=== PATIENT | female | born 1995 | race Caucasian/White ===

== ENCOUNTER 2017-04-05 21:53 | Emergency (ER) | payer OTHER ==
[2017-04-05 23:36] LABS: APPEARANCE,URINE CLEAR; BILIRUBIN,URINE NEGATIVE (NEGATIVE); GLUCOSE, URINE NEGATIVE (NEGATIVE); KETONES,URINE NEGATIVE (NEGATIVE); LEUKOCYTE ESTERASE,URINE TRACE (NEGATIVE); NITRITE,URINE NEGATIVE (NEGATIVE); PROTEIN,URINE NEGATIVE (NEGATIVE); URINE SPECIFIC GRAVITY 1.017; UROBILINOGEN,URINE NEGATIVE mg/dL (<2.0)
[2017-04-05] MEDS ORDERED: FLUCONAZOLE 100 MG TABLET PO ONE (23:44)
--- NOTE | 2017-04-05 23:48 | ER Document Report ---
ED General - General Chief Complaint: Vaginal Itching Stated Complaint: VAGINAL SWELLING Time Seen by Provider: 04/05/17 22:51 Notes: Patient is a 21-year-old female without past medical history who presents with 1 week of vaginal itching and burning. Describes it as a constant, burning, throbbing pain. [place]erman worsens the pain. Nothing improves the pain. Denies a history of similar symptoms in the past except when she was 15 at which time she states she had a yeast infection that was treated with Azo. She has not seen her primary care doctor regarding today's concerns. She denies any abdominal pain, fever or constitutional symptoms. TRAVEL OUTSIDE OF THE [place] IN LAST 30 DAYS: No Past Medical History - General Information source: Patient - Social History Smoking Status: Never Smoker Frequency of alcohol use: None Drug Abuse: None Lives with: Spouse/Significant other Family History: Reviewed & Not Pertinent Patient has suicidal ideation: No Patient has homicidal ideation: No Neurological Medical History: Reports: Hx Seizures Renal/ Medical History: Denies: Hx Peritoneal Dialysis Surgical Hx: Negative Review of Systems - Review of Systems Notes: Constitutional: Negative for fever. HENT: Negative for sore throat. Eyes: Negative for visual changes. Cardiovascular: Negative for chest pain. Respiratory: Negative for shortness of breath. Gastrointestinal: Negative for abdominal pain, vomiting or diarrhea. Genitourinary: Positive for vaginal pain Musculoskeletal: Negative for back pain. Skin: Negative for rash. Neurological: Negative for headaches, weakness or numbness. 10 point ROS negative except as marked above and in HPI. Physical Exam - Vital signs Vitals: Temp Pulse Resp BP Pulse Ox 98.8 F 53 L 16 120/64 98 04/05/17 22:05 04/05/17 22:05 04/05/17 22:05 04/05/17 22:05 04/05/17 22:05 Interpretation: Bradycardic Notes: PHYSICAL EXAMINATION: GENERAL: Well-appearing, well-nourished and in no acute distress. HEAD: Atraumatic, normocephalic. EYES: sclera anicteric, conjunctiva are normal. ENT: Moist mucous membranes. NECK: Normal range of motion LUNGS: Normal work of breathing HEART: 2+ radial pulses bilaterally EXTREMITIES: no pitting or edema. No cyanosis. NEUROLOGICAL: No focal neurological deficits. Moves all extremities spontaneously and on command. PSYCH: Normal mood, normal affect. SKIN: Warm, Dry, normal turgor, no rashes or lesions noted. Course - Re-evaluation Re-evalutation: 04/05/17 23:44 Patient presents complaining of vaginal itching and burning with associated swelling for the past 1 week. Patient adamantly declines any pelvic or external vaginal exam despite my explanation that without this examination, I have no way to truly tell what is causing her symptoms and that given she has never actually had a yeast infection in the past there is no way she either can be certain that she has a yeast infection. I have declined to the patient that regardless of the fact that she is she could also have bacterial vaginosis as a cause, or if her could be unfaithful and she could have a sexually transmitted infection. I have explained that if we treat with fluconazole here it may not correct her symptoms and she could proceed to get much sicker including pelvic inflammatory disease, loss of fertility, or much more serious infection. She is breast understanding of this and continues to decline a pelvic examination. Will treat with a single dose of fluconazole and recommend close outpatient follow-up. At this time will discharge with return precautions and follow-up recommendations. Verbal discharge instructions given a the bedside and opportunity for questions given. Medication warnings reviewed. Patient is in agreement with this plan and has verbalized understanding of return precautions and the need for primary care follow-up in the next 24-72 hours. - Vital Signs Vital signs: Temp Pulse Resp BP Pulse Ox 98.8 F 87 18 101/62 98 04/05/17 22:05 04/05/17 23:55 04/05/17 23:55 04/05/17 23:55 04/05/17 23:55 - Laboratory Laboratory results interpreted by me: 04/05/17 23:15 Urine Blood SMALL H Ur Leukocyte Esterase TRACE H Discharge - Discharge Clinical Impression: Vaginal pain Condition: Good Disposition: HOME, SELF-CARE Additional Instructions: You have declined a pelvic exam so unfortunately I am not able to tell you exactly why your having the symptoms for which you presented to the emergency department. Please understand that she could have alternative infections that will not be treated by fluconazole and need to follow-up with your primary care doctor or another physician if your symptoms are not improving, worsen or you develop flulike symptoms including fever, abdominal pain, vomiting, or generalized malaise.
[2017-04-05 23:56] VITALS: BP 101/62
== END 2017-04-05 23:56 | disposition home or self-care (01) ==
LOC: ER 21:53
DX: L29.2 Pruritus vulvae (principal); R10.2 Pelvic and perineal pain
CPT/HCPCS: 81001; 81025; 99283

== ENCOUNTER 2018-05-04 15:50 | Inpatient (IN) | payer OTHER ==
[2018-05-04 16:26] LABS: APPEARANCE,URINE CLEAR; BILIRUBIN,URINE NEGATIVE (NEGATIVE); COLOR,URINE YELLOW; GLUCOSE, URINE NEGATIVE (NEGATIVE); KETONES,URINE NEGATIVE (NEGATIVE); LEUKOCYTE ESTERASE,URINE MODERATE (NEGATIVE); NITRITE,URINE NEGATIVE (NEGATIVE); PROTEIN,URINE NEGATIVE (NEGATIVE); URINE SPECIFIC GRAVITY 1.006; UROBILINOGEN,URINE NEGATIVE mg/dL (<2.0)
[2018-05-04 16:33] LABS: URINE AMPHETAMINES SCREEN NEGATIVE; URINE BARBITURATES SCREEN NEGATIVE; URINE BENZODIAZEPINES SCREEN NEGATIVE; URINE COCAINE SCREEN NEGATIVE; URINE MARIJUANA (THC) SCREEN NEGATIVE; URINE METHADONE SCREEN NEGATIVE; URINE PHENCYCLIDINE SCREEN NEGATIVE
--- NOTE | 2018-05-04 18:22 | Non Stress Test Report ---
Non Stress Test Datetime Report Generated by CPN: 05/04/2018 18:21 DEMOGRAPHIC EGA NST: 40.0 INDICATION Indication for Study: Ordered by Provider MONITORING Monitor Explained: Monitor Explained; Test Explained; Patient Verbalized Understanding Time on Monitor: 05/04/2018 16:07 Time off Monitor: 05/04/2018 16:49 NST Duration: 42 NST INTERVENTIONS NST Interventions: None Physician Notified NST: Dr. Dickson BABY A: [id number] BABY A Movement : Present Contraction Frequency : 2-3 FHR Baseline : 140 Accelerations : 15X15 Decelerations : None Variability : Moderate 6-25bpm NST Review: Meets Criteria for Reactive NST NST Review and Verified By : Dayami Alexander RN NST Results: Reactive NST REPORT Report Trigger: Send Report
[2018-05-04] MEDS ORDERED: RINGERS SOLUTION,LACTATED 1,000 ML IV ONE (18:46)
[2018-05-04] MEDS ORDERED: RINGERS SOLUTION,LACTATED 1,000 ML IV PRN (18:46)
[2018-05-04] MEDS ORDERED: OXYTOCIN/NORMAL SALINE 20 UNIT/1,000 ML RTUINJ ONE (19:23)
[2018-05-04] MEDS ORDERED: LIDOCAINE 1% INJ-PF (10 MG/ML) 30 ML SDV ONE (19:23)
[2018-05-04] MEDS ORDERED: MISOPROSTOL 0.2 MG TABLET ONE (19:23)
[2018-05-04] MEDS ORDERED: EPHEDRINE SULFATE INJ 50 MG/1 ML AMPULE ONE (19:23)
[2018-05-04] MEDS ORDERED: BUPIVACAINE HCL 0.25 % INJ/PF (2.5 MG/1 ML) 30 ML VIAL ONE (19:24)
[2018-05-04] MEDS ORDERED: FENTANYL/BUPIVACAINE/NS/PF 300 MCG/150 ML RTUINJ EPI ONE (19:24)
[2018-05-04 19:30] LABS: ABSOLUTE BASOPHILS # (AUTO) 0.1 10^3/uL (0.0-0.2); ABSOLUTE EOSINOPHILS # (AUTO) 0.1 10^3/uL (0.0-0.6); ABSOLUTE LYMPHOCYTES (AUTO) 1.2 10^3/uL (0.5-4.7); ABSOLUTE MONOCYTES (AUTO) 0.8 10^3/uL (0.1-1.4); ABSOLUTE NEUT (AUTO) 9.4 10^3/uL (1.7-8.2); BASOPHILS % (AUTO) 0.5 % (0-2); EOSINOPHILS % (AUTO) 0.5 % (0-6); HEMATOCRIT 38.7 % (36.0-47.0); HEMOGLOBIN 13.1 g/dL (12.0-15.5); LYMPHOCYTES % (AUTO) 10.3 % (13-45); MEAN CORPUSCULAR HEMOGLOBIN 29.6 pg (27.0-33.4); MEAN CORPUSCULAR HGB CONC 33.9 g/dL (32.0-36.0); MEAN CORPUSCULAR VOLUME 87 fl (80-97); MONOCYTES % (AUTO) 7.2 % (3-13); PLATELET COUNT 257 10^3/uL (150-450); RED BLOOD COUNT 4.43 10^6/uL (3.72-5.28); RED CELL DISTRIBUTION WIDTH 13.2 % (11.5-14.0); SEGMENTED NEUTROPHILS % (AUTO) 81.5 % (42-78); TOTAL CELLS COUNTED % (AUTO) 100 %; WHITE BLOOD COUNT 11.6 10^3/uL (4.0-10.5)
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
--- NOTE | 2018-05-04 21:37 | Warning Signs in Babies ---
VOD Warning Signs Datetime Report Generated by [facility]: 05/04/2018 21:37 VOD#608 -Warning Signs in Babies: Needs to be viewed. (05/04/2018 16:07:Shelley Fields RN)
[2018-05-04] MEDS ORDERED: GLYCERIN/WITCH HAZEL LEAF 1 EACH MED..PAD TP PRN (22:03)
[2018-05-04] MEDS ORDERED: PROMETHAZINE HCL 25 MG SUPP.RECT PR PRN (22:03)
[2018-05-04] MEDS ORDERED: MEASLES,MUMPS&RUBELLA VACC/PF 0.5 ML VIAL SUBCUT PRN (22:03)
[2018-05-04] MEDS ORDERED: PSEUDOEPHEDRINE HCL 30 MG TABLET PO PRN (22:03)
[2018-05-04] MEDS ORDERED: MISOPROSTOL 0.2 MG TABLET PR PRN (22:03)
[2018-05-04] MEDS ORDERED: ACETAMINOPHEN WITH CODEINE #3 TABLET PO PRN ×2 (22:03)
[2018-05-04] MEDS ORDERED: BENZOCAINE/MENTHOL AEROSOL SPRAY 56 ML TOP PRN (22:03)
[2018-05-04] MEDS ORDERED: DIPH/PERTUSS(ACELL)/TETANUS VAC/PF 0.5 ML SYR (>=10YO) IM PRN (22:03)
[2018-05-04] MEDS ORDERED: DIBUCAINE 1% OINTMENT 28 GM TP PRN (22:03)
[2018-05-04] MEDS ORDERED: NA PHOS,M-B/NA PHOS,DI-BA (ADULT) 133 ML ENEMA PR PRN (22:03)
[2018-05-04] MEDS ORDERED: DIPHENHYDRAMINE HCL 25 MG CAPSULE PO PRN (22:03)
[2018-05-04] MEDS ORDERED: PROMETHAZINE HCL INJ 25 MG/1 ML VIAL IV PRN (22:03)
[2018-05-04] MEDS ORDERED: PROMETHAZINE HCL 25 MG TABLET PO PRN (22:03)
[2018-05-04] MEDS ORDERED: OXYTOCIN/NORMAL SALINE 20 UNIT/1,000 ML RTUINJ IV PRN (22:03)
[2018-05-04] MEDS ORDERED: ACETAMINOPHEN 325 MG TABLET PO PRN (22:03)
[2018-05-04] MEDS ORDERED: MAGNESIUM HYDROXIDE SUSP 30 ML UDCUP PO PRN (22:03)
[2018-05-04] MEDS ORDERED: ZOLPIDEM TARTRATE 5 MG TABLET PO PRN (22:03)
[2018-05-04] MEDS ORDERED: ACETAMINOPHEN 325 MG TABLET ONE (22:35)
--- NOTE | 2018-05-04 23:03 | Delivery Summary ---
Del Sum A-C Datetime Report Generated by CPN: 05/04/2018 23:03 DELIVERY PERSONNEL DELIVERY PERSONNEL: [id number] Delivery Doctor:: Shannon Dickson MD Labor and Delivery Nurse:: Chloe Palmer RNlounge car attendant Nurse:: Zaria Adrián RN MATERNAL INFORMATION Delivery Anesthesia: Epidural Medications After Delivery: Pitocin Drip 20 Units/1000ml NSS Meds After Delivery Comment: cytotec 1000mcg Maternal Complications: None Provider Comments: VFI delivered in [place]AR[place] presentation with compound right hand. Shoulders and body delivered without difficulty. Cord doubly clamped and cut and to maternal abdomen for NRP. Placenta delivered intact spontaneously. FF at U after cytotec placement. Bilateral labial lacerations repaired in layered fashion with good hemostasis. Mother and baby stable upon provider leaving the room. LABOR SUMMARY EDC: 05/04/2018 00:00 No. Babies in Womb: 1 Attempted: No Labor Anesthesia: Epidural LABOR INFORMATION Reason for Induction: Not Applicable Onset of Labor: 05/04/2018 18:39 Complete Dilatation: 05/04/2018 21:00 Oxytocin: N/A Group B Beta Strep: negative Antibiotics # of Doses: 0 Antibiotics Time of Last Dose: N/A Name of Antibiotic Given: N/A Steroids Given: None Reason Steroids Not Administered: Not Applicable MEMBRANES Membranes Rupture Method: Spontaneous Rupture of Membranes: 05/04/2018 20:32 Length of Rupture (hr): 0.82 Amniotic Fluid Color: Clear Amniotic Fluid Amount: Moderate Amniotic Fluid Odor: Normal STAGES OF LABOR Stage 1 hr: 2 Stage 1 min: 21 Stage 2 hr: 0 Stage 2 min: 21 Stage 3 hr: 0 Stage 3 min: 2 Total Time in Labor hr: 2 Total Time in Labor min: 44 VAGINAL DELIVERY Episiotomy: None Laceration #1: Vaginal Laceration Extension #1: N/A Laceration Repair: Yes Laceration Repair Note: Bilateral labial lacerations repaired in usual fashion with good hemostasis Sponge Count Correct: Yes Sharps Count Correct: Yes CSECTION DELIVERY Primary Indication: N/A Secondary Indication: N/A CSection Incidence: N/A Labor: N/A Elective: N/A CSection Incision: N/A BABY A INFORMATION Infant Delivery Date/Time: 05/04/2018 21:21 Method of Delivery: Vaginal Born in Route : No : N/A Forceps: N/A Vacuum Extraction: N/A Shoulder Dystocia : No PRESENTATION/POSITION BABY A Presentation: Cephalic Cephalic Presentation: Vertex Vertex Position: Left Occipital Anterior Breech Presentation: N/A PLACENTA INFORMATION BABY A Placenta Delivery Time : 05/04/2018 21:23 Placenta Method of Delivery: Spontaneous Placenta Status: Delivered SCORES BABY A Heart Rate 1 min: >100 bpm Resp Effort 1 min: Slow, Irregular Reflex Irritability 1 min: Cough or Sneeze or Pulls Away Muscle Tone 1 min: Some Flexion of Extremities Color 1 min: Blue/Pale Resuscitation Effort 1 min: Tactile Stimulation SCORE 1 MIN: 6 Heart Rate 5 min: >100 bpm Resp Effort 5 min: [place] Reflex Irritability 5 min: Cough or Sneeze or Pulls Away Muscle Tone 5 min: Active Motion Color 5 min: Body [place], Extremities Blue Resuscitation Effort 5 min: Tactile Stimulation SCORE 5 MIN: 9 INFORMATION BABY A Gestational Age at Delivery: 40.0 Gestational Status: Full Term- 39- 40.6 Weeks Outcome : Liveborn Condition : Stable Sex: Female IDENTIFICATION BABY A Infant Verification Date/Time: 05/04/2018 22:06 ID Band Number: [id number] Mother's Name Verified: Yes RN Verifying : EAjit Palmer RN/ Manuel Sampson RN WEIGHT/LENGTH BABY A Infant Birthweight (gm): 3570 Infant Weight (lb): 7 Infant Weight (oz): 14 Infant Length (in): 20.00 Infant Length (cm): 50.80 CORD INFORMATION BABY A No. Cord Vessels: 3 Nuchal Cord : Around Neck x1, Loose Cord Blood Taken: Yes-For Eval (Mom's Blood Type - or O+) Infant Suction: Mouth; Nose; Pharynx ASSESSMENT BABY A Infant Complications: None Physical Findings at Delivery: Within Normal Limits Skin to Skin: Yes Skin to Skin Time (min): 60 BABY B INFORMATION : N/A SIGNATURES Signature: Electronically signed by Shannon Dickson MD ([facility]) on 05/04/2018 at 21:59 with User ID: [email or web address]
[2018-05-05 07:07] LABS: HEMATOCRIT 35.4 % (36.0-47.0); HEMOGLOBIN 12.4 g/dL (12.0-15.5); MEAN CORPUSCULAR HEMOGLOBIN 30.5 pg (27.0-33.4); MEAN CORPUSCULAR HGB CONC 35.1 g/dL (32.0-36.0); MEAN CORPUSCULAR VOLUME 87 fl (80-97); PLATELET COUNT 213 10^3/uL (150-450); RED BLOOD COUNT 4.06 10^6/uL (3.72-5.28); RED CELL DISTRIBUTION WIDTH 13.2 % (11.5-14.0); WHITE BLOOD COUNT 10.3 10^3/uL (4.0-10.5)
[2018-05-05] MEDS: IBUPROFEN 800 MG TABLET PO SCH ×3 (07:21→21:32)
--- NOTE | 2018-05-05 09:44 | PDOC PROGRESS REPORT ---
Subjective-OB Progress Note for:: 05/05/18 Subjective: 22yo G2 now P1 s/p ppd1. Patient ambulating, and voiding without difficulty. Denies concerns at this time. Physical Exam (OB) Vital Signs: Temp Pulse Resp BP Pulse Ox 98.6 F 75 20 98/59 L 99 05/05/18 07:53 05/05/18 07:53 05/05/18 07:53 05/05/18 07:53 05/05/18 07:53 Intake & Output 05/04/18 05/05/18 05/06/18 06:59 06:59 06:59 Weight 101.2 kg - General General Appearance: Appears well In distress: None - PIH/Pre-Eclampsia Headache: Absent Epigastric Pain: No Visual Changes: No - Episiotomy/Laceration Site Condition: Well Approximated, Edematous - Lochia Lochia Amount: Scant < 10 ml Lochia Color: Rubra/Red - Abdomen Description: Soft Hernia Present: No Fundal Description: Firm, Midline Fundal Height: u/u - u/2 - Respiratory Respiratory Status: No respiratory distress - Extremities Upper extremity: Normal inspection Lower extremities: Normal inspection - Neurological Cognition: Normal Orientation: AAOx4 - Psychological Associated symptoms: Normal affect, Normal mood Objective-Diagnostic Laboratory: 05/05/18 06:58 05/04/18 05/04/18 05/04/18 16:01 19:15 19:15 WBC 11.6 H RBC 4.43 Hgb 13.1 Hct 38.7 MCV 87 MCH 29.6 MCHC 33.9 RDW 13.2 Plt Count 257 Seg Neutrophils % 81.5 H Lymphocytes % 10.3 L Monocytes % 7.2 Eosinophils % 0.5 Basophils % 0.5 Absolute Neutrophils 9.4 H Absolute Lymphocytes 1.2 Absolute Monocytes 0.8 Absolute Eosinophils 0.1 Absolute Basophils 0.1 Urine Color YELLOW Urine Appearance CLEAR Urine pH 7.0 Ur Specific [place] 1.006 Urine Protein NEGATIVE Urine Glucose (UA) NEGATIVE Urine Ketones NEGATIVE Urine Blood SMALL H Urine Nitrite NEGATIVE Ur Leukocyte Esterase MODERATE H Urine WBC (Auto) 21 Urine RBC (Auto) 1 Blood Type O POSITIVE Antibody Screen NEGATIVE 05/05/18 06:58 WBC 10.3 RBC 4.06 Hgb 12.4 Hct 35.4 L MCV 87 MCH 30.5 MCHC 35.1 RDW 13.2 Plt Count 213 Seg Neutrophils % Lymphocytes % Monocytes % Eosinophils % Basophils % Absolute Neutrophils Absolute Lymphocytes Absolute Monocytes Absolute Eosinophils Absolute Basophils Urine Color Urine Appearance Urine pH Ur Specific [place] Urine Protein Urine Glucose (UA) Urine Ketones Urine Blood Urine Nitrite Ur Leukocyte Esterase Urine WBC (Auto) Urine RBC (Auto) Blood Type Antibody Screen Assessment and Plan(PN) - Assessment and Plan (1) Vaginal delivery Is this a current diagnosis for this admission?: Yes Plan: Routine pp care. (2) Active labor at term Is this a current diagnosis for this admission?: Yes Plan: delivered - Time Spent with Patient Time with patient: Less than 15 minutes Medications reviewed and adjusted accordingly: Yes - Disposition Anticipated Discharge: Home Within: within 24 hours
[2018-05-05] MEDS: FERROUS SULFATE 325 MG TABLET PO SCH ×2 (11:43→18:14)
[2018-05-05] MEDS: PRENATAL VITAMIN W DHA CAPSULE PO SCH (11:43)
[2018-05-05] MEDS: SENNOSIDES/DOCUSATE 8.6-50 MG 1 EACH TABLET PO SCH (11:43)
[2018-05-05] MEDS: FAMOTIDINE 20 MG TABLET PO SCH ×2 (11:43→21:32)
[2018-05-05] MEDS: DOCUSATE SODIUM 100 MG CAPSULE PO SCH ×2 (11:43→18:14)
[2018-05-06] MEDS: IBUPROFEN 800 MG TABLET PO SCH (05:49)
--- NOTE | 2018-05-06 08:46 | PDOC DISCHARGE SUMMARY ---
Final Diagnosis Discharge Date: 05/06/18 - Final Diagnosis (1) Active labor at term Is this a current diagnosis for this admission?: Yes (2) Vaginal delivery Is this a current diagnosis for this admission?: Yes Discharge Data - Discharge Medication Home Medications: No Home Medications 05/04/18 Reason(s) for Admission: Onset of Labor Intrapartum Procedure(s): Spontaneous Vaginal Delivery - Diagnosis Test Laboratory: Temp Pulse Resp BP Pulse Ox 97.5 F 72 17 130/89 H 98 05/06/18 07:30 05/06/18 07:30 05/06/18 07:30 05/06/18 07:30 05/06/18 07:30 05/04/18 05/04/18 05/05/18 16:01 19:15 06:58 RBC 4.43 4.06 Hgb 13.1 12.4 Hct 38.7 35.4 L Urine Opiates Screen NEGATIVE - Discharge information/Instructions Discharge Activity: Pelvic Rest, No tub bath Discharge Diet: As Tolerated Disposition: HOME, SELF-CARE Follow up with: [facility] in: 4
[2018-05-06] MEDS: FAMOTIDINE 20 MG TABLET PO SCH (10:35)
[2018-05-06] MEDS: PRENATAL VITAMIN W DHA CAPSULE PO SCH (10:36)
[2018-05-06] MEDS: SENNOSIDES/DOCUSATE 8.6-50 MG 1 EACH TABLET PO SCH (10:36)
[2018-05-06] MEDS: DOCUSATE SODIUM 100 MG CAPSULE PO SCH (10:36)
[2018-05-06] MEDS: FERROUS SULFATE 325 MG TABLET PO SCH (10:36)
[2018-05-06 11:48] VITALS: BP 128/85
== END 2018-05-06 13:03 | disposition home or self-care (01) | DRG 775 ==
LOC: LC 15:50 → LR 18:52 → 2S 23:21
PROVIDERS: ADMIT Obstetrics & Gynecology; ATTEND Obstetrics & Gynecology
PROC: 10E0XZZ Delivery of Products of Conception, External Approach (ICD-10-PCS; principal; 2018-05-04)
PROC: 0HQ9XZZ Repair Perineum Skin, External Approach (ICD-10-PCS; 2018-05-04)
DX: O32.6XX0 Maternal care for compound presentation, not applicable or unspecified (principal); O70.0 First degree perineal laceration during delivery; O69.81X0 Labor and delivery complicated by cord around neck, without compression, not applicable or unspecified; Z37.0 Single live birth; Z3A.40 40 weeks gestation of pregnancy
CPT/HCPCS: 36415; 80307; 81001; 85025; 85027; 86592; 86850; 86900; 86901; J2590; J3010; J3490